=== PATIENT | male | born 1955 | race Caucasian/White ===

== ENCOUNTER 2017-05-02 09:31 | Inpatient (IN) | payer BC ==
[2017-05-02] VITALS (16 sets, daily range): BP systolic 111–137; BP diastolic 55–69
[~2017-05-02] VITALS: Ht 175.3 cm; Wt 97.8 kg
[2017-05-02 10:10] LABS: CLARITY,URINE CLEAR (Clear); COLOR,URINE YELLOW (Yellow); GLUCOSE, URINE 100 mg/dl (Neg); KETONES,URINE TRACE mg/dl (Neg); LEUKOCYTE ESTERASE ,URINE NEGATIVE (Neg); NITRITES, URINE NEGATIVE (Neg); OCCULT BLOOD,URINE MODERATE (Neg); PH,URINE 5.5 (4.8-8.0); PROTEIN,URINE >=300 mg/dl (Neg); UROBILINOGEN,URINE 0.2 E.U/dL (0.2-1.0)
[2017-05-02 10:14] LABS: UA COLLECTION TYPE VOIDED
[2017-05-02 10:26] LABS: AMORPHOUS URATES 1+; BACTERIA,URINE NONE SEEN /HPF (Neg); MUCUS STRANDS NONE SEEN /LPF (Neg); RBC,URINE 0-2 /HPF (0-2); SQUAMOUS EPITHELIAL CELL,UR NONE SEEN /LPF (FEW); TRANSITIONAL EPI CELLS,URINE FEW /HPF; WBC,URINE NONE SEEN /HPF (0-4)
[2017-05-02 10:28] LABS: BASOPHILS # (AUTO) 0.1 X10'3 (0-0.2); BASOPHILS % (AUTO) 0.6 % (0-1); EOSINOPHILS # (AUTO) 0.1 X10'3 (0-0.9); EOSINOPHILS % (AUTO) 0.6 % (0-6); HEMATOCRIT 39.1 % (42.0-52.0); HEMOGLOBIN 13.5 g/dl (14.0-17.9); LYMPHOCYTES # (AUTO) 0.6 X10'3 (1.1-4.8); LYMPHOCYTES % (AUTO) 4.5 % (21-51); MEAN CORPUSCULAR HEMOGLOBIN 30.3 PG (27.0-31.0); MEAN CORPUSCULAR HGB CONC 34.4 % (33.0-36.5); MEAN CORPUSCULAR VOLUME 88.2 FL (78-98); MEAN PLATELET VOLUME 9.8 FL (7.4-10.4); MONOCYTES # (AUTO) 0.7 X10'3 (0-0.9); MONOCYTES % (AUTO) 5.2 % (2-12); NEUTROPHILS # (AUTO) 11.7 X10'3 (1.8-7.7); NEUTROPHILS % (AUTO) 89.1 % (42-75); PLATELET COUNT 176 X10'3 (140-440); RED BLOOD COUNT 4.44 X10'6 (4.70-6.10); RED CELL DISTRIBUTION WIDTH 13.7 % (11.5-14.5); WHITE BLOOD COUNT 13.1 X10'3 (4.5-11.0)
[2017-05-02 10:39] LABS: PROTHROMBIN TIME 10.1 SECONDS (9.0-12.0)
[2017-05-02 10:43] LABS: ALANINE AMINOTRANSFERASE 51 U/L (12-78); ALBUMIN 3.2 G/DL (3.4-5.0); ALBUMIN/GLOBULIN RATIO 0.9 (1.1-1.5); ALKALINE PHOSPHATASE 74 IU/L (46-116); ASPARTATE AMINO TRANSFERASE 37 U/L (10-37); BILIRUBIN,TOTAL 1.2 MG/DL (0.1-1.0); BLOOD UREA NITROGEN 39 MG/DL (7-18); BUN/CREATININE RATIO 22.3 (5.4-32.0); CALCIUM 8.8 MG/DL (8.5-10.1); CHLORIDE 103 MMOL/L (99-107); CREATININE 1.75 MG/DL (0.60-1.10); GLUCOSE 297 MG/DL (70-104); POTASSIUM 4.2 MMOL/L (3.5-5.1); TOTAL CARBON DIOXIDE 28.1 MMOL/L (24-32); TOTAL PROTEIN 6.7 G/DL (6.4-8.2); eGFR 40 ML/MIN
[2017-05-02 10:44] LABS: ANION GAP 7 (8-16); SODIUM 138 MMOL/L (135-145)
[2017-05-02] MEDS: normal saline 1000ml 1,000 ML IV SCH ×2 (13:17→21:14)
[2017-05-02] MEDS ORDERED: magnesium 2GM in 50ml NS 50 ML IV PRN (13:20)
[2017-05-02] MEDS ORDERED: magnesium Cl slow-release 64mg tablet PO PRN (13:20)
[2017-05-02] MEDS ORDERED: HYDROmorphone 1 mg/ml syringe IV PRN (13:20)
[2017-05-02] MEDS ORDERED: magnesium 4gm in 100ml NS 100 ML IV PRN (13:20)
[2017-05-02] MEDS ORDERED: mag hydrox/Alum hydrox/simeth 30ml oral suspension PO PRN (13:20)
[2017-05-02] MEDS ORDERED: magnesium hydroxide 30ml (MOM) UD suspension PO PRN (13:20)
[2017-05-02] MEDS ORDERED: potassium Cl 40MEQ/NS 500ml 500 ML IV PRN ×2 (13:20)
[2017-05-02] MEDS ORDERED: potassium Cl 20 mEq SR tablet PO PRN ×2 (13:20)
[2017-05-02] MEDS ORDERED: piperacillin/tazo 4.5gm/100ml 100 ML IV SCH (13:40)
[2017-05-02] MEDS ORDERED: BUPIVAcaine/PF 2.5 mg/ml (0.25%) 30ml vial ONE (14:23)
[2017-05-02] MEDS ORDERED: LIDOcaine 1% 30ml vial 30 ML ONE (14:23)
[2017-05-02] MEDS ORDERED: HYDR12.55 PO (14:51)
[2017-05-02] MEDS ORDERED: FLO0.4C PO (14:53)
[2017-05-02] MEDS ORDERED: LISI40TA4 PO (14:54)
[2017-05-02] MEDS ORDERED: SYN0.088T PO (14:58)
[2017-05-02] MEDS ORDERED: SITA50TA PO (14:59)
[2017-05-02] MEDS ORDERED: ASPI-529 (15:00)
[2017-05-02] MEDS ORDERED: NEBI20TA2 PO (15:01)
[2017-05-02] MEDS ORDERED: SPIR25TA PO (15:11)
[2017-05-02] MEDS ORDERED: ringers solution, lacted 1,000 ML IV SCH (16:07)
[2017-05-02] MEDS ORDERED: ondansetron/PF 4mg/2ml inj IV PRN (16:10)
[2017-05-02] MEDS ORDERED: proCHLORperazine 10 MG/2 ml inj IV PRN (16:10)
[2017-05-02] MEDS ORDERED: meperidine/PF 25mg/ml syringe IV PRN ×2 (16:10)
[2017-05-02] MEDS ORDERED: meperidine/PF 25mg/ml syringe IV ONE (16:10)
[2017-05-02] MEDS ORDERED: desflurane 240ml liquid inh. IH ONE (16:30)
[2017-05-02] MEDS ORDERED: insulin regular, human vial - multi-dose ONE (16:34)
[2017-05-02] MEDS ORDERED: fentaNYL/PF 50MCG/1 ML 2ML syringe ONE (16:44)
[2017-05-02] MEDS ORDERED: midazolam 2 mg/2 ml injection ONE (16:45)
[2017-05-02] MEDS ORDERED: LIDOcaine 2% 5ml jelly ONE (16:48)
[2017-05-02] MEDS ORDERED: propofol inj 20 ML IV ONE (16:59)
[2017-05-02] MEDS ORDERED: rocuronium 10mg/ml inj IV ONE (16:59)
[2017-05-02] MEDS ORDERED: ceFOXitin 1000 MG inj ONE ×2 (16:59)
[2017-05-02] MEDS ORDERED: LIDOcaine 2% (20mg/ml) 5ml vial ONE (16:59)
[2017-05-02] MEDS ORDERED: dexamethasone sod phosphate 4mg/ml inj. ONE (17:21)
[2017-05-02] MEDS ORDERED: ondansetron/PF 4mg/2ml inj ONE (17:21)
[2017-05-02] MEDS ORDERED: glycopyrrolate 0.2mg/ml inj ONE (17:30)
[2017-05-02] MEDS ORDERED: neostigmine methylsulfate 1 MG/ML 10ml vial ONE (17:30)
[2017-05-02] MEDS ORDERED: ketorolac trometh. 30mg/ml inj. ONE (17:30)
[2017-05-02] MEDS ORDERED: HYDROcodone/acetaminophen 10/325mg tab PO PRN (17:45)
[2017-05-02] MEDS ORDERED: HYDROcodone/acetaminophen 5mg/325mg tablet PO PRN (17:45)
[2017-05-02] MEDS ORDERED: dextrose ORAL solution 15 GM/59 ML bottle PO PRN ×2 (17:50)
[2017-05-02] MEDS ORDERED: MESSAGE TO PHARMACY PO ONE (17:50)
[2017-05-02] MEDS ORDERED: dextrose 50%-water 50ml dispensing syringe IV PRN ×2 (17:50)
[2017-05-02] MEDS ORDERED: glucagon, human recombinant 1mg kit SUBCUT PRN (17:50)
[2017-05-02 18:34] LABS: HEMOGLOBIN A1C 6.5 % (4.5-6.2)
[2017-05-02] MEDS: Insulin Detemir pen SQ SCH (22:49)
[2017-05-02] MEDS: lisinopril 20mg tablet PO SCH (22:52)
[2017-05-02] MEDS: ceFOXitin 1 GM ADDVANTAGE BAG 1,000 MG in normal saline 100ml IV soln 100 ML IV SCH (23:43)
[2017-05-03 03:30] VITALS: BP 114/61
[2017-05-03 05:22] LABS: BASOPHILS % (AUTO) 0 % (0-1); EOSINOPHILS # (AUTO) 0.2 X10'3 (0-0.9); HEMATOCRIT 35.3 % (42.0-52.0); HEMOGLOBIN 12.1 g/dl (14.0-17.9); LYMPHOCYTES # (AUTO) 0.5 X10'3 (1.1-4.8); LYMPHOCYTES % (AUTO) 2.5 % (21-51); MEAN CORPUSCULAR HEMOGLOBIN 30.5 PG (27.0-31.0); MEAN CORPUSCULAR HGB CONC 34.1 % (33.0-36.5); MEAN CORPUSCULAR VOLUME 89.5 FL (78-98); MEAN PLATELET VOLUME 10.6 FL (7.4-10.4); MONOCYTES # (AUTO) 0.7 X10'3 (0-0.9); MONOCYTES % (AUTO) 3.6 % (2-12); NEUTROPHILS # (AUTO) 17.7 X10'3 (1.8-7.7); NEUTROPHILS % (AUTO) 92.9 % (42-75); PLATELET COUNT 157 X10'3 (140-440); RED BLOOD COUNT 3.95 X10'6 (4.70-6.10); WHITE BLOOD COUNT 19.1 X10'3 (4.5-11.0)
[2017-05-03 05:52] LABS: ALANINE AMINOTRANSFERASE 40 U/L (12-78); ALBUMIN 2.6 G/DL (3.4-5.0); ALBUMIN/GLOBULIN RATIO 0.8 (1.1-1.5); ALKALINE PHOSPHATASE 57 IU/L (46-116); ANION GAP 10 (8-16); ASPARTATE AMINO TRANSFERASE 20 U/L (10-37); BLOOD UREA NITROGEN 50 MG/DL (7-18); CALCIUM 7.7 MG/DL (8.5-10.1); CHLORIDE 105 MMOL/L (99-107); CREATININE 3.34 MG/DL (0.60-1.10); GLUCOSE 281 MG/DL (70-104); MAGNESIUM 1.6 MG/DL (1.5-2.4); POTASSIUM 4.6 MMOL/L (3.5-5.1); SODIUM 139 MMOL/L (135-145); TOTAL CARBON DIOXIDE 24.1 MMOL/L (24-32); eGFR 19 ML/MIN
[2017-05-03] MEDS ORDERED: tamsulosin 0.4mg capsule PO ONE (06:40)
[2017-05-03] MEDS: ceFOXitin 1 GM ADDVANTAGE BAG 1,000 MG in normal saline 100ml IV soln 100 ML IV SCH (07:29)
[2017-05-03] MEDS: levoTHYROXINE 88mcg tablet PO SCH (07:30)
[2017-05-03] MEDS: lisinopril 20mg tablet PO SCH (07:31)
[2017-05-03] MEDS: enoxaparin 40mg/0.4ml syringe SQ SCH (07:33)
[2017-05-03] MEDS: K and/or MAG REPLACEMENT MC SCH (07:38)
[2017-05-03 07:45] VITALS: BP 129/65
[2017-05-03] MEDS ORDERED: levoFLOXACIN-Levaquin 500mg/D5 100 ML IV SCH (08:55)
[2017-05-03] MEDS ORDERED: METR500T4 PO (09:38)
[2017-05-03] MEDS ORDERED: LEVO500T2 PO (10:43)
[2017-05-03 11:10] VITALS: BP 128/64
[2017-05-03] MEDS ORDERED: cefTRIAXone 1g/NS 100ml IVPB 100 ML IV SCH (11:45)
[2017-05-03] MEDS ORDERED: metroNIDAZOLE-Flagyl 500mg/NS 100 ML IV SCH (12:17)
[2017-05-03] MEDS: insulin Lispro (HumaLOG) vial - multi-dose SQ SCH ×2 (13:38→19:24)
[2017-05-03] MEDS: metroNIDAZOLE-Flagyl 500mg/NS 100 ML IV SCH ×2 (16:10→23:13)
[2017-05-03] MEDS: normal saline 1000ml 1,000 ML IV SCH (16:14)
[2017-05-03 17:46] LABS: CLARITY,URINE Cloudy (Clear); COLOR,URINE Yellow (Yellow); GLUCOSE, URINE 100 mg/dl (Neg); KETONES,URINE 15 mg/dl (Neg); LEUKOCYTE ESTERASE ,URINE Negative (Neg); NITRITES, URINE Negative (Neg); OCCULT BLOOD,URINE Trace-Intact (Neg); PROTEIN,URINE 300 mg/dl (Neg); UROBILINOGEN,URINE 0.2 E.U/dL (0.2-1.0)
[2017-05-03 17:49] LABS: UA COLLECTION TYPE NON-SPECIFIED
[2017-05-03 17:56] LABS: CREATININE,URINE RANDOM 130.5 MG/DL; TOTAL PROTEIN,URINE RANDOM 309.9 MG/DL
[2017-05-03 17:57] LABS: WBC,URINE 0-4 /HPF (0-4)
[2017-05-03 17:58] LABS: AMORPHOUS URATES 2+; BACTERIA,URINE 1+ /HPF (Neg); MUCUS STRANDS FEW /LPF (Neg); SQUAMOUS EPITHELIAL CELL,UR FEW /LPF (FEW); TRANSITIONAL EPI CELLS,URINE FEW /HPF
[2017-05-03 18:03] LABS: COARSE GRANULAR CAST 0-3 /LPF (NEGATIVE); HYALINE CASTS 0-3 /LPF (NEGATIVE)
[2017-05-03 20:00] VITALS: BP 138/72
[2017-05-03] MEDS: Insulin Detemir pen SQ SCH (20:51)
[2017-05-03] MEDS: tamsulosin 0.4mg capsule PO SCH (21:43)
[2017-05-04] VITALS: BP 140/72
[2017-05-04] MEDS: normal saline 1000ml 1,000 ML IV SCH ×3 (01:24→20:55)
[2017-05-04] MEDS ORDERED: LIDOcaine 2% 10ml TOPICAL JELLY (Urojet) TP ONE (04:30)
[2017-05-04 05:49] LABS: BASOPHILS % (AUTO) 0.1 % (0-1); EOSINOPHILS # (AUTO) 0.3 X10'3 (0-0.9); EOSINOPHILS % (AUTO) 1.6 % (0-6); HEMOGLOBIN 11.4 g/dl (14.0-17.9); LYMPHOCYTES # (AUTO) 0.9 X10'3 (1.1-4.8); LYMPHOCYTES % (AUTO) 5.7 % (21-51); MEAN CORPUSCULAR HEMOGLOBIN 30.2 PG (27.0-31.0); MEAN CORPUSCULAR HGB CONC 33.5 % (33.0-36.5); MEAN CORPUSCULAR VOLUME 90.1 FL (78-98); MEAN PLATELET VOLUME 10.7 FL (7.4-10.4); MONOCYTES # (AUTO) 1.2 X10'3 (0-0.9); MONOCYTES % (AUTO) 7.1 % (2-12); NEUTROPHILS # (AUTO) 13.9 X10'3 (1.8-7.7); NEUTROPHILS % (AUTO) 85.5 % (42-75); PLATELET COUNT 153 X10'3 (140-440); RED BLOOD COUNT 3.77 X10'6 (4.70-6.10); RED CELL DISTRIBUTION WIDTH 14.1 % (11.5-14.5); WHITE BLOOD COUNT 16.3 X10'3 (4.5-11.0)
[2017-05-04 06:00] VITALS: BP 140/72
[2017-05-04 06:02] LABS: ALANINE AMINOTRANSFERASE 37 U/L (12-78); ALBUMIN 2.6 G/DL (3.4-5.0); ALBUMIN/GLOBULIN RATIO 0.7 (1.1-1.5); ALKALINE PHOSPHATASE 55 IU/L (46-116); ANION GAP 10 (8-16); ASPARTATE AMINO TRANSFERASE 26 U/L (10-37); BILIRUBIN,TOTAL 0.8 MG/DL (0.1-1.0); BLOOD UREA NITROGEN 75 MG/DL (7-18); BUN/CREATININE RATIO 15.5 (5.4-32.0); CALCIUM 7.2 MG/DL (8.5-10.1); CHLORIDE 97 MMOL/L (99-107); CREATININE 4.84 MG/DL (0.60-1.10); GLUCOSE 169 MG/DL (70-104); MAGNESIUM 1.6 MG/DL (1.5-2.4); POTASSIUM 4.1 MMOL/L (3.5-5.1); SODIUM 132 MMOL/L (135-145); TOTAL CARBON DIOXIDE 25.1 MMOL/L (24-32); TOTAL PROTEIN 6.1 G/DL (6.4-8.2); eGFR 12 ML/MIN
[2017-05-04 07:38] LABS: PLATELET ESTIMATE NORMAL
[2017-05-04] MEDS: K and/or MAG REPLACEMENT MC SCH (08:00)
[2017-05-04] MEDS ORDERED: tamsulosin 0.4mg capsule PO SCH (08:00)
[2017-05-04] MEDS: metroNIDAZOLE-Flagyl 500mg/NS 100 ML IV SCH ×2 (08:49→16:37)
[2017-05-04] MEDS: levoFLOXACIN-Levaquin 250mg/D5 100 ML IV SCH (08:50)
[2017-05-04] MEDS: levoTHYROXINE 88mcg tablet PO SCH (08:51)
[2017-05-04] MEDS: enoxaparin 40mg/0.4ml syringe SQ SCH (08:51)
[2017-05-04] MEDS: insulin Lispro (HumaLOG) vial - multi-dose SQ SCH ×2 (09:08→19:21)
[2017-05-04] MEDS: ondansetron/PF 4mg/2ml inj IV PRN (10:59)
[2017-05-04 11:00] VITALS: BP 140/72
[2017-05-04] MEDS: albumin (human) 25% 100 ML IV solution IV SCH (16:39)
[2017-05-04 20:00] VITALS: BP 150/74
[2017-05-04] MEDS: tamsulosin 0.4mg capsule PO SCH (20:55)
[2017-05-04] MEDS: Insulin Detemir pen SQ SCH (22:01)
[2017-05-05] VITALS: BP 140/73
[2017-05-05] MEDS: albumin (human) 25% 100 ML IV solution IV SCH (02:10)
[2017-05-05] MEDS: metroNIDAZOLE-Flagyl 500mg/NS 100 ML IV SCH ×3 (03:19→15:08)
[2017-05-05 05:06] LABS: BASOPHILS % (AUTO) 0.2 % (0-1); EOSINOPHILS # (AUTO) 0.3 X10'3 (0-0.9); HEMATOCRIT 31.7 % (42.0-52.0); HEMOGLOBIN 10.8 g/dl (14.0-17.9); LYMPHOCYTES # (AUTO) 0.8 X10'3 (1.1-4.8); LYMPHOCYTES % (AUTO) 7.3 % (21-51); MEAN CORPUSCULAR HEMOGLOBIN 30.3 PG (27.0-31.0); MEAN PLATELET VOLUME 10.6 FL (7.4-10.4); MONOCYTES # (AUTO) 1.3 X10'3 (0-0.9); MONOCYTES % (AUTO) 11.4 % (2-12); NEUTROPHILS # (AUTO) 8.8 X10'3 (1.8-7.7); NEUTROPHILS % (AUTO) 78.1 % (42-75); PLATELET COUNT 132 X10'3 (140-440); RED BLOOD COUNT 3.56 X10'6 (4.70-6.10); RED CELL DISTRIBUTION WIDTH 13.9 % (11.5-14.5); WHITE BLOOD COUNT 11.3 X10'3 (4.5-11.0)
[2017-05-05] MEDS: normal saline 1000ml 1,000 ML IV SCH ×2 (05:31→15:08)
[2017-05-05 05:36] LABS: ALANINE AMINOTRANSFERASE 40 U/L (12-78); ALKALINE PHOSPHATASE 51 IU/L (46-116); ANION GAP 12 (8-16); ASPARTATE AMINO TRANSFERASE 31 U/L (10-37); BILIRUBIN,TOTAL 1.2 MG/DL (0.1-1.0); BLOOD UREA NITROGEN 83 MG/DL (7-18); CALCIUM 7.2 MG/DL (8.5-10.1); CHLORIDE 100 MMOL/L (99-107); CREATININE 5.92 MG/DL (0.60-1.10); GLUCOSE 151 MG/DL (70-104); MAGNESIUM 1.7 MG/DL (1.5-2.4); POTASSIUM 3.9 MMOL/L (3.5-5.1); SODIUM 134 MMOL/L (135-145); TOTAL PROTEIN 5.9 G/DL (6.4-8.2); eGFR 10 ML/MIN
[2017-05-05] MEDS: levoFLOXACIN-Levaquin 250mg/D5 100 ML IV SCH (07:52)
[2017-05-05] MEDS: levoTHYROXINE 88mcg tablet PO SCH (07:53)
[2017-05-05] MEDS: K and/or MAG REPLACEMENT MC SCH (07:53)
[2017-05-05] MEDS: enoxaparin 40mg/0.4ml syringe SQ SCH (07:54)
[2017-05-05] MEDS: insulin Lispro (HumaLOG) vial - multi-dose SQ SCH ×2 (09:06→19:09)
[2017-05-05 20:19] VITALS: BP 146/80
[2017-05-05] MEDS: tamsulosin 0.4mg capsule PO SCH (20:49)
[2017-05-05] MEDS: Insulin Detemir pen SQ SCH (20:59)
[2017-05-06] VITALS: BP 140/73
[2017-05-06] MEDS: metroNIDAZOLE-Flagyl 500mg/NS 100 ML IV SCH ×3 (00:39→16:22)
[2017-05-06] MEDS: normal saline 1000ml 1,000 ML IV SCH ×4 (02:17→21:58)
[2017-05-06 05:14] LABS: BASOPHILS % (AUTO) 0 % (0-1); EOSINOPHILS # (AUTO) 0.1 X10'3 (0-0.9); EOSINOPHILS % (AUTO) 1.2 % (0-6); HEMOGLOBIN 10.2 g/dl (14.0-17.9); LYMPHOCYTES # (AUTO) 0.6 X10'3 (1.1-4.8); LYMPHOCYTES % (AUTO) 6.6 % (21-51); MEAN CORPUSCULAR HEMOGLOBIN 30.3 PG (27.0-31.0); MEAN CORPUSCULAR VOLUME 89.2 FL (78-98); MEAN PLATELET VOLUME 10.7 FL (7.4-10.4); MONOCYTES % (AUTO) 10.3 % (2-12); NEUTROPHILS # (AUTO) 7.6 X10'3 (1.8-7.7); NEUTROPHILS % (AUTO) 81.9 % (42-75); PLATELET COUNT 149 X10'3 (140-440); RED BLOOD COUNT 3.36 X10'6 (4.70-6.10); RED CELL DISTRIBUTION WIDTH 13.9 % (11.5-14.5); WHITE BLOOD COUNT 9.2 X10'3 (4.5-11.0)
[2017-05-06 05:46] LABS: ALANINE AMINOTRANSFERASE 32 U/L (12-78); ALBUMIN 2.8 G/DL (3.4-5.0); ALBUMIN/GLOBULIN RATIO 0.9 (1.1-1.5); ALKALINE PHOSPHATASE 50 IU/L (46-116); ANION GAP 11 (8-16); ASPARTATE AMINO TRANSFERASE 22 U/L (10-37); BILIRUBIN,TOTAL 1.2 MG/DL (0.1-1.0); BLOOD UREA NITROGEN 92 MG/DL (7-18); BUN/CREATININE RATIO 12.8 (5.4-32.0); CALCIUM 7.1 MG/DL (8.5-10.1); CHLORIDE 102 MMOL/L (99-107); CREATININE 7.16 MG/DL (0.60-1.10); GLUCOSE 244 MG/DL (70-104); MAGNESIUM 1.8 MG/DL (1.5-2.4); POTASSIUM 3.9 MMOL/L (3.5-5.1); SODIUM 138 MMOL/L (135-145); TOTAL CARBON DIOXIDE 24.7 MMOL/L (24-32); TOTAL PROTEIN 5.8 G/DL (6.4-8.2); eGFR 8 ML/MIN
[2017-05-06 06:00] VITALS: BP 166/82
[2017-05-06] MEDS: acetaminophen 325mg tablet PO PRN ×2 (06:55→16:43)
[2017-05-06] MEDS: levoTHYROXINE 88mcg tablet PO SCH (07:51)
[2017-05-06] MEDS: LACTOBACILLUS RHAMNOSUS GG 15 billion unit sprinkle caps PO SCH (07:51)
[2017-05-06] MEDS: K and/or MAG REPLACEMENT MC SCH (07:55)
[2017-05-06 08:02] VITALS: BP 166/82
[2017-05-06] MEDS: insulin Lispro (HumaLOG) vial - multi-dose SQ SCH ×3 (09:11→19:30)
[2017-05-06] MEDS: tamsulosin 0.4mg capsule PO SCH ×2 (10:17→21:58)
[2017-05-06 10:27] VITALS: BP 141/72
[2017-05-06] MEDS: amLODIPine 5mg tablet PO SCH (10:27)
[2017-05-06 12:08] VITALS: BP 142/73
[2017-05-06 19:00] VITALS: BP 128/69
[2017-05-06] MEDS: Insulin Detemir pen SQ SCH (22:00)
[2017-05-07] VITALS: BP 129/61
[2017-05-07] MEDS: ondansetron/PF 4mg/2ml inj IV PRN (03:05)
[2017-05-07] MEDS: metroNIDAZOLE-Flagyl 500mg/NS 100 ML IV SCH ×3 (03:10→17:37)
[2017-05-07 05:35] LABS: BASOPHILS % (AUTO) 0.2 % (0-1); EOSINOPHILS # (AUTO) 0.2 X10'3 (0-0.9); EOSINOPHILS % (AUTO) 1.9 % (0-6); HEMATOCRIT 30.6 % (42.0-52.0); HEMOGLOBIN 10.3 g/dl (14.0-17.9); LYMPHOCYTES # (AUTO) 0.6 X10'3 (1.1-4.8); MEAN CORPUSCULAR HGB CONC 33.6 % (33.0-36.5); MEAN CORPUSCULAR VOLUME 89.5 FL (78-98); MEAN PLATELET VOLUME 10.3 FL (7.4-10.4); MONOCYTES % (AUTO) 9.4 % (2-12); NEUTROPHILS # (AUTO) 9.3 X10'3 (1.8-7.7); NEUTROPHILS % (AUTO) 83.5 % (42-75); PLATELET COUNT 161 X10'3 (140-440); RED BLOOD COUNT 3.42 X10'6 (4.70-6.10); WHITE BLOOD COUNT 11.1 X10'3 (4.5-11.0)
[2017-05-07] MEDS: normal saline 1000ml 1,000 ML IV SCH (05:49)
[2017-05-07 05:53] LABS: ALANINE AMINOTRANSFERASE 29 U/L (12-78); ALBUMIN 2.6 G/DL (3.4-5.0); ALBUMIN/GLOBULIN RATIO 0.8 (1.1-1.5); ALKALINE PHOSPHATASE 48 IU/L (46-116); ANION GAP 16 (8-16); ASPARTATE AMINO TRANSFERASE 21 U/L (10-37); BILIRUBIN,TOTAL 1.1 MG/DL (0.1-1.0); BLOOD UREA NITROGEN 91 MG/DL (7-18); BUN/CREATININE RATIO 12.5 (5.4-32.0); CHLORIDE 104 MMOL/L (99-107); CREATININE 7.28 MG/DL (0.60-1.10); GLUCOSE 147 MG/DL (70-104); MAGNESIUM 1.8 MG/DL (1.5-2.4); POTASSIUM 3.6 MMOL/L (3.5-5.1); SODIUM 141 MMOL/L (135-145); TOTAL CARBON DIOXIDE 21.5 MMOL/L (24-32); TOTAL PROTEIN 5.7 G/DL (6.4-8.2); eGFR 8 ML/MIN
[2017-05-07] MEDS: levoTHYROXINE 88mcg tablet PO SCH (07:19)
[2017-05-07] MEDS: LACTOBACILLUS RHAMNOSUS GG 15 billion unit sprinkle caps PO SCH (07:19)
[2017-05-07] MEDS: amLODIPine 5mg tablet PO SCH (07:20)
[2017-05-07] MEDS: tamsulosin 0.4mg capsule PO SCH ×2 (07:20→20:13)
[2017-05-07 07:32] VITALS: BP 145/74
[2017-05-07] MEDS: K and/or MAG REPLACEMENT MC SCH (08:00)
[2017-05-07] MEDS: insulin Lispro (HumaLOG) vial - multi-dose SQ SCH ×4 (09:01→22:09)
[2017-05-07] MEDS ORDERED: albuterol 2.5 MG/3 ML nebule NEB PRN (09:40)
[2017-05-07] MEDS: furosemide 20MG tablet PO SCH ×2 (10:50→20:13)
[2017-05-07 11:34] VITALS: BP 136/72
[2017-05-07 19:00] VITALS: BP 134/73
[2017-05-07] MEDS: Insulin Detemir pen SQ SCH (22:07)
[2017-05-08] VITALS: BP 146/80
[2017-05-08] MEDS: metroNIDAZOLE-Flagyl 500mg/NS 100 ML IV SCH ×4 (00:03→23:58)
[2017-05-08] MEDS: ondansetron/PF 4mg/2ml inj IV PRN (03:20)
[2017-05-08] MEDS: K and/or MAG REPLACEMENT MC SCH (08:00)
[2017-05-08] MEDS: insulin Lispro (HumaLOG) vial - multi-dose SQ SCH ×3 (08:44→19:17)
[2017-05-08] MEDS: LACTOBACILLUS RHAMNOSUS GG 15 billion unit sprinkle caps PO SCH (08:47)
[2017-05-08] MEDS: tamsulosin 0.4mg capsule PO SCH ×2 (08:47→20:26)
[2017-05-08] MEDS: amLODIPine 5mg tablet PO SCH (08:48)
[2017-05-08] MEDS: levoTHYROXINE 88mcg tablet PO SCH (08:48)
[2017-05-08] MEDS: furosemide 20MG tablet PO SCH ×2 (08:48→20:28)
[2017-05-08 08:55] VITALS: BP 133/66
[2017-05-08 10:00] VITALS: BP 148/73
[2017-05-08 11:15] LABS: BASOPHILS % (AUTO) 0.2 % (0-1); EOSINOPHILS # (AUTO) 0.2 X10'3 (0-0.9); EOSINOPHILS % (AUTO) 1.9 % (0-6); HEMATOCRIT 33.4 % (42.0-52.0); HEMOGLOBIN 11.4 g/dl (14.0-17.9); LYMPHOCYTES # (AUTO) 0.6 X10'3 (1.1-4.8); LYMPHOCYTES % (AUTO) 5.3 % (21-51); MEAN CORPUSCULAR HEMOGLOBIN 30.4 PG (27.0-31.0); MEAN CORPUSCULAR HGB CONC 34.2 % (33.0-36.5); MEAN CORPUSCULAR VOLUME 89.1 FL (78-98); MEAN PLATELET VOLUME 9.5 FL (7.4-10.4); MONOCYTES % (AUTO) 8.3 % (2-12); NEUTROPHILS # (AUTO) 10.4 X10'3 (1.8-7.7); NEUTROPHILS % (AUTO) 84.3 % (42-75); PLATELET COUNT 221 X10'3 (140-440); RED BLOOD COUNT 3.75 X10'6 (4.70-6.10); RED CELL DISTRIBUTION WIDTH 13.8 % (11.5-14.5); WHITE BLOOD COUNT 12.3 X10'3 (4.5-11.0)
[2017-05-08 11:32] LABS: ALANINE AMINOTRANSFERASE 39 U/L (12-78); ALBUMIN 2.7 G/DL (3.4-5.0); ALBUMIN/GLOBULIN RATIO 0.8 (1.1-1.5); ALKALINE PHOSPHATASE 51 IU/L (46-116); ANION GAP 12 (8-16); ASPARTATE AMINO TRANSFERASE 32 U/L (10-37); BILIRUBIN,TOTAL 0.7 MG/DL (0.1-1.0); BLOOD UREA NITROGEN 89 MG/DL (7-18); BUN/CREATININE RATIO 12.4 (5.4-32.0); CALCIUM 7.3 MG/DL (8.5-10.1); CHLORIDE 103 MMOL/L (99-107); GLUCOSE 248 MG/DL (70-104); POTASSIUM 3.6 MMOL/L (3.5-5.1); SODIUM 137 MMOL/L (135-145); TOTAL CARBON DIOXIDE 22.5 MMOL/L (24-32); TOTAL PROTEIN 6.2 G/DL (6.4-8.2); eGFR 8 ML/MIN
[2017-05-08 12:28] VITALS: BP 148/73
[2017-05-08 19:00] VITALS: BP 146/70
[2017-05-08] MEDS: Insulin Detemir pen SQ SCH (21:15)
[2017-05-09] VITALS: BP 140/71
[2017-05-09 05:24] LABS: BASOPHILS % (AUTO) 0.2 % (0-1); EOSINOPHILS # (AUTO) 0.4 X10'3 (0-0.9); HEMATOCRIT 32.1 % (42.0-52.0); HEMOGLOBIN 10.7 g/dl (14.0-17.9); LYMPHOCYTES # (AUTO) 0.9 X10'3 (1.1-4.8); LYMPHOCYTES % (AUTO) 9.8 % (21-51); MEAN CORPUSCULAR HGB CONC 33.5 % (33.0-36.5); MEAN CORPUSCULAR VOLUME 89.6 FL (78-98); MEAN PLATELET VOLUME 9.8 FL (7.4-10.4); MONOCYTES % (AUTO) 10.1 % (2-12); NEUTROPHILS # (AUTO) 7.2 X10'3 (1.8-7.7); NEUTROPHILS % (AUTO) 75.9 % (42-75); PLATELET COUNT 225 X10'3 (140-440); RED BLOOD COUNT 3.58 X10'6 (4.70-6.10); RED CELL DISTRIBUTION WIDTH 13.5 % (11.5-14.5); WHITE BLOOD COUNT 9.4 X10'3 (4.5-11.0)
[2017-05-09 05:44] LABS: ALANINE AMINOTRANSFERASE 25 U/L (12-78); ALBUMIN 2.6 G/DL (3.4-5.0); ALBUMIN/GLOBULIN RATIO 0.8 (1.1-1.5); ALKALINE PHOSPHATASE 49 IU/L (46-116); ANION GAP 14 (8-16); ASPARTATE AMINO TRANSFERASE 21 U/L (10-37); BILIRUBIN,TOTAL 0.7 MG/DL (0.1-1.0); BLOOD UREA NITROGEN 92 MG/DL (7-18); BUN/CREATININE RATIO 12.2 (5.4-32.0); CALCIUM 7.3 MG/DL (8.5-10.1); CHLORIDE 103 MMOL/L (99-107); CREATININE 7.57 MG/DL (0.60-1.10); GLUCOSE 114 MG/DL (70-104); MAGNESIUM 1.6 MG/DL (1.5-2.4); POTASSIUM 3.4 MMOL/L (3.5-5.1); SODIUM 139 MMOL/L (135-145); TOTAL CARBON DIOXIDE 22.2 MMOL/L (24-32); TOTAL PROTEIN 5.9 G/DL (6.4-8.2); eGFR 7 ML/MIN
[2017-05-09] MEDS: tamsulosin 0.4mg capsule PO SCH ×2 (07:17→21:29)
[2017-05-09] MEDS: LACTOBACILLUS RHAMNOSUS GG 15 billion unit sprinkle caps PO SCH (07:17)
[2017-05-09] MEDS: metroNIDAZOLE-Flagyl 500mg/NS 100 ML IV SCH ×2 (07:17→15:51)
[2017-05-09] MEDS: furosemide 20MG tablet PO SCH ×2 (07:18→21:28)
[2017-05-09] MEDS: levoTHYROXINE 88mcg tablet PO SCH (07:18)
[2017-05-09] MEDS: amLODIPine 5mg tablet PO SCH (07:18)
[2017-05-09 07:33] VITALS: BP 145/72
[2017-05-09] MEDS: K and/or MAG REPLACEMENT MC SCH (08:00)
[2017-05-09] MEDS: insulin Lispro (HumaLOG) vial - multi-dose SQ SCH ×2 (08:47→13:44)
[2017-05-09 11:53] VITALS: BP 142/77
[2017-05-09 14:13] LABS: CLARITY,URINE CLEAR (Clear); COLOR,URINE YELLOW (Yellow); GLUCOSE, URINE NEGATIVE (Neg); KETONES,URINE NEGATIVE (Neg); LEUKOCYTE ESTERASE ,URINE NEGATIVE (Neg); NITRITES, URINE NEGATIVE (Neg); OCCULT BLOOD,URINE TRACE-INTACT (Neg); PH,URINE 5.5 (4.8-8.0); PROTEIN,URINE NEGATIVE (Neg); UROBILINOGEN,URINE 0.2 E.U/dL (0.2-1.0)
[2017-05-09 14:24] LABS: UA COLLECTION TYPE VOIDED
[2017-05-09 14:25] LABS: BACTERIA,URINE NONE SEEN /HPF (Neg); RBC,URINE 0-2 /HPF (0-2); SQUAMOUS EPITHELIAL CELL,UR NONE SEEN /LPF (FEW); WBC,URINE 0-4 /HPF (0-4)
[2017-05-09 14:31] LABS: CREATININE,URINE RANDOM 38.4 MG/DL
[2017-05-09 19:30] VITALS: BP 155/73
[2017-05-09] MEDS: Insulin Detemir pen SQ SCH (21:27)
[2017-05-10] VITALS: BP 142/69
[2017-05-10] MEDS: metroNIDAZOLE-Flagyl 500mg/NS 100 ML IV SCH ×2 (00:01→08:17)
[2017-05-10 05:03] LABS: BASOPHILS % (AUTO) 0.4 % (0-1); EOSINOPHILS # (AUTO) 0.4 X10'3 (0-0.9); EOSINOPHILS % (AUTO) 5.2 % (0-6); HEMATOCRIT 32.5 % (42.0-52.0); LYMPHOCYTES # (AUTO) 0.8 X10'3 (1.1-4.8); LYMPHOCYTES % (AUTO) 10.2 % (21-51); MEAN CORPUSCULAR HEMOGLOBIN 30.1 PG (27.0-31.0); MEAN CORPUSCULAR HGB CONC 33.8 % (33.0-36.5); MEAN CORPUSCULAR VOLUME 88.8 FL (78-98); MEAN PLATELET VOLUME 9.2 FL (7.4-10.4); MONOCYTES # (AUTO) 0.8 X10'3 (0-0.9); MONOCYTES % (AUTO) 10.5 % (2-12); NEUTROPHILS # (AUTO) 5.7 X10'3 (1.8-7.7); NEUTROPHILS % (AUTO) 73.7 % (42-75); PLATELET COUNT 248 X10'3 (140-440); RED BLOOD COUNT 3.65 X10'6 (4.70-6.10); RED CELL DISTRIBUTION WIDTH 13.4 % (11.5-14.5); WHITE BLOOD COUNT 7.7 X10'3 (4.5-11.0)
[2017-05-10 05:44] LABS: ALANINE AMINOTRANSFERASE 27 U/L (12-78); ALBUMIN 2.6 G/DL (3.4-5.0); ALBUMIN/GLOBULIN RATIO 0.8 (1.1-1.5); ALKALINE PHOSPHATASE 50 IU/L (46-116); ANION GAP 12 (8-16); ASPARTATE AMINO TRANSFERASE 24 U/L (10-37); BILIRUBIN,TOTAL 0.7 MG/DL (0.1-1.0); BLOOD UREA NITROGEN 92 MG/DL (7-18); BUN/CREATININE RATIO 12.4 (5.4-32.0); CALCIUM 7.6 MG/DL (8.5-10.1); CHLORIDE 102 MMOL/L (99-107); GLUCOSE 163 MG/DL (70-104); POTASSIUM 3.4 MMOL/L (3.5-5.1); SODIUM 138 MMOL/L (135-145); TOTAL CARBON DIOXIDE 24.5 MMOL/L (24-32); TOTAL PROTEIN 5.7 G/DL (6.4-8.2); eGFR 7 ML/MIN
[2017-05-10 07:00] VITALS: BP 134/72
[2017-05-10] MEDS: K and/or MAG REPLACEMENT MC SCH (08:00)
[2017-05-10] MEDS: levoTHYROXINE 88mcg tablet PO SCH (08:17)
[2017-05-10] MEDS: tamsulosin 0.4mg capsule PO SCH ×2 (08:17→21:31)
[2017-05-10] MEDS: furosemide 20MG tablet PO SCH (08:17)
[2017-05-10] MEDS: LACTOBACILLUS RHAMNOSUS GG 15 billion unit sprinkle caps PO SCH (08:17)
[2017-05-10] MEDS: amLODIPine 5mg tablet PO SCH (08:17)
[2017-05-10] MEDS: insulin Lispro (HumaLOG) vial - multi-dose SQ SCH ×3 (08:25→19:15)
[2017-05-10 12:18] VITALS: BP 147/72
[2017-05-10 17:15] LABS: UREA NITROGEN 24HR,URINE 10.9 GM/24HR (7-20)
[2017-05-10] MEDS ORDERED: normal saline 1000ml 1,000 ML IV SCH (18:40)
[2017-05-10 19:15] VITALS: BP 153/74
[2017-05-10] MEDS: Insulin Detemir pen SQ SCH (21:31)
[2017-05-10 22:30] VITALS: BP 129/79
[2017-05-10] MEDS ORDERED: metoprolol tartrate 1mg/ml inj IV PRN (22:30)
[2017-05-10] MEDS ORDERED: heparin, porcine 5000 units/ml vial SQ ONE (22:40)
[2017-05-10] MEDS ORDERED: heparin, porcine 5000 units/ml vial SQ SCH (22:40)
[2017-05-10 23:30] VITALS: BP 144/73
[2017-05-11 05:27] LABS: BASOPHILS % (AUTO) 0.6 % (0-1); EOSINOPHILS # (AUTO) 0.3 X10'3 (0-0.9); EOSINOPHILS % (AUTO) 3.7 % (0-6); HEMATOCRIT 33.8 % (42.0-52.0); HEMOGLOBIN 11.5 g/dl (14.0-17.9); LYMPHOCYTES # (AUTO) 0.7 X10'3 (1.1-4.8); LYMPHOCYTES % (AUTO) 9.1 % (21-51); MEAN CORPUSCULAR HGB CONC 34.1 % (33.0-36.5); MEAN CORPUSCULAR VOLUME 88.1 FL (78-98); MEAN PLATELET VOLUME 9.2 FL (7.4-10.4); MONOCYTES # (AUTO) 0.8 X10'3 (0-0.9); MONOCYTES % (AUTO) 9.5 % (2-12); NEUTROPHILS # (AUTO) 6.3 X10'3 (1.8-7.7); NEUTROPHILS % (AUTO) 77.1 % (42-75); PLATELET COUNT 272 X10'3 (140-440); RED BLOOD COUNT 3.83 X10'6 (4.70-6.10); RED CELL DISTRIBUTION WIDTH 13.8 % (11.5-14.5); WHITE BLOOD COUNT 8.2 X10'3 (4.5-11.0)
[2017-05-11 05:52] LABS: ALANINE AMINOTRANSFERASE 28 U/L (12-78); ALBUMIN 2.8 G/DL (3.4-5.0); ALBUMIN/GLOBULIN RATIO 0.9 (1.1-1.5); ALKALINE PHOSPHATASE 57 IU/L (46-116); ANION GAP 12 (8-16); ASPARTATE AMINO TRANSFERASE 27 U/L (10-37); BILIRUBIN,TOTAL 0.6 MG/DL (0.1-1.0); BLOOD UREA NITROGEN 90 MG/DL (7-18); BUN/CREATININE RATIO 12.9 (5.4-32.0); CALCIUM 7.8 MG/DL (8.5-10.1); CHLORIDE 100 MMOL/L (99-107); GLUCOSE 183 MG/DL (70-104); POTASSIUM 3.3 MMOL/L (3.5-5.1); SODIUM 138 MMOL/L (135-145); TOTAL CARBON DIOXIDE 26.2 MMOL/L (24-32); eGFR 8 ML/MIN
[2017-05-11 07:17] VITALS: BP_SYST 126; BP_SYST 144; BP_DIAS 70; BP_DIAS 78
[2017-05-11] MEDS: K and/or MAG REPLACEMENT MC SCH (08:00)
[2017-05-11] MEDS ORDERED: heparin, porcine 5000 units/ml vial SQ SCH (08:00)
[2017-05-11] MEDS: LACTOBACILLUS RHAMNOSUS GG 15 billion unit sprinkle caps PO SCH (09:14)
[2017-05-11] MEDS: tamsulosin 0.4mg capsule PO SCH (09:14)
[2017-05-11] MEDS: amLODIPine 5mg tablet PO SCH (09:15)
[2017-05-11] MEDS: levoTHYROXINE 88mcg tablet PO SCH (09:15)
[2017-05-11] MEDS: insulin Lispro (HumaLOG) vial - multi-dose SQ SCH (09:23)
[2017-05-11] MEDS ORDERED: furosemide 40mg/4ml inj IV ONE (11:30)
[2017-05-11] MEDS ORDERED: furosemide 40mg tablet PO SCH (20:00)
== END 2017-05-11 14:37 | disposition home or self-care (01) | DRG 853 ==
LOC: ER 09:32 → ED HOLD 13:17 → SUR 3N 15:31
PROVIDERS: ADMIT Internal Medicine; ATTEND Internal Medicine Critical Care Medicine
PROC: 0DTJ4ZZ Resection of Appendix, Percutaneous Endoscopic Approach (ICD-10-PCS; principal; 2017-05-02 16:30)
PROC: CT131ZZ Planar Nuclear Medicine Imaging of Kidneys, Ureters and Bladder using Technetium 99m (Tc-99m) (ICD-10-PCS; 2017-05-09)
DX: A41.9 Sepsis, unspecified organism (principal); K35.2 Acute appendicitis with generalized peritonitis; N17.0 Acute kidney failure with tubular necrosis; E11.52 Type 2 diabetes mellitus with diabetic peripheral angiopathy with gangrene; N18.4 Chronic kidney disease, stage 4 (severe); E11.21 Type 2 diabetes mellitus with diabetic nephropathy; N17.9 Acute kidney failure, unspecified; E11.22 Type 2 diabetes mellitus with diabetic chronic kidney disease; E03.9 Hypothyroidism, unspecified; K74.60 Unspecified cirrhosis of liver; B18.2 Chronic viral hepatitis C; E11.65 Type 2 diabetes mellitus with hyperglycemia; E78.00 Pure hypercholesterolemia, unspecified; I12.9 Hypertensive chronic kidney disease with stage 1 through stage 4 chronic kidney disease, or unspecified chronic kidney disease; I25.10 Atherosclerotic heart disease of native coronary artery without angina pectoris; N40.0 Benign prostatic hyperplasia without lower urinary tract symptoms; Z79.84 Long term (current) use of oral hypoglycemic drugs; Z88.2 Allergy status to sulfonamides; Z88.8 Allergy status to other drugs, medicaments and biological substances; Z79.899 Other long term (current) drug therapy; Z79.01 Long term (current) use of anticoagulants; Z79.82 Long term (current) use of aspirin; Z79.4 Long term (current) use of insulin
CPT/HCPCS: 93306; 99285; Z7506; 36415; 71045; 74018; 74176; 76775; 78707; 80053; 81001; 82570; 82948; 83036; 83735; 83880; 84105; 84156; 84300; 84560; 85025; 85610; 87070; 93005; 94640; 94760; A4315; A4353; A7000; A9562; J0694; J0696; J1100; J1170; J1644; J1650; J1815; J1885; J1940; J1956; J2001; J2175; J2250; J2270; J2405; J2543; J2704; J2710; J3010; J3490; J7030; J7120; P9047